=== PATIENT | female | born 1960 | race Caucasian/White ===

== ENCOUNTER 2016-10-08 12:17 | Emergency (ER) | payer OTHER ==
[2016-10-08 12:34] VITALS: PULSE 105; RESP 18
[2016-10-08] MEDS ORDERED: IBUPROFEN 600 MG TAB PO ONE (13:48)
--- NOTE | 2016-10-08 13:56 | UCPHY ---
H & P Time Seen by Provider: 10/08/16 13:37 Patient Type: Established HPI/ROS: CHIEF COMPLAINT: Cough HISTORY OF PRESENT ILLNESS: 56-year-old female presents reporting 5 days of worsening cough, headache, and ear pain. Low-grade fever. No chest pain. No shortness of breath. Occasional sputum production. No fever, chills, chest pain, shortness of breath, palpitations, vomiting, diarrhea, urinary complaints, headache, lightheadedness. REVIEW OF SYSTEMS: Aside from elements discussed in the HPI, a comprehensive 10-point review of systems was reviewed and is negative. PAST MEDICAL HISTORY: Patient denies. SOCIAL HISTORY: Nonsmoker. VITAL SIGNS: see nurse's notes. GENERAL: Well-developed, well-nourished,frequent coughing. HEENT: Atraumatic Eyes: PERRL, EOMI, no conjunctival injection. Ears: Slight erythema bilaterally, normal landmarks. Nose: No discharge. Mouth: moist mucous membranes. Pharynx: Moderate erythema, no exudates, no swelling, no abscess. Uvula is midline. NECK: Supple, no adenopathy, no meningismus, no tenderness. Negative Kernig's and Brudzinski's. LUNGS: Faint bibasilar crackles, left greater than right, no wheezes, rhonchi or rales. CARDIAC: Regular rate and rhythm, no rubs, murmurs or gallops. ABDOMEN: Soft, nontender, bowel sounds normal. BACK: No CVA tenderness. EXTREMITIES: Normal, no edema, FROM. NEURO: Alert and oriented, grossly nonfocal. SKIN: Warm and dry, no rash. PSYCHIATRIC: Normal mentation, no agitation. Smoking Status: Never smoked Constitutional: Initial Vital Signs Temperature (C) 37.8 C 10/08/16 12:32 Heart Rate 105 H 10/08/16 12:32 Respiratory Rate 18 10/08/16 12:32 Blood Pressure 163/95 H 10/08/16 12:32 O2 Sat (%) 90 L 10/08/16 12:32 O2 Delivery Mode Room Air Allergies/Adverse Reactions: codeine [Codeine] Allergy (Verified 09/22/14 08:25) Penicillins Allergy (Verified 09/22/14 08:25) Sulfa (Sulfonamide Antibiotics) Allergy (Verified 09/22/14 08:25) Home Medications: Medication Instructions Recorded Albuterol Hfa Anes Only [Proair 2 puffs IH Q4-6PRN PRN #1 mdi 09/22/14 Hfa Icu (*)] Azithromycin [Zithromax tab 250 mg] 250 mg PO DAILY #6 tab 09/22/14 AZITHROMYCIN [Z-PACK] 250 - 500 mg PO DAILY #6 tab 10/08/16 Albuterol [Proventil Inhaler HFA 1 - 2 puffs IH Q4H #1 mdi 10/08/16 (*)] Benzonatate [Tessalon Pearles (RX)] 100 mg PO TID PRN #20 cap 10/08/16 Medical Decision Making - Diagnostics Imaging Results: Xray: Chest x-ray was obtained. I viewed the images myself on the PACS system. My interpretation of the images is: Consistent with bronchitis. The radiology interpretation is: Agrees. I discussed the results with the patient. ED Course/Re-evaluation: 56-year-old female with cough for several days which has developed after an upper respiratory infection. Examination demonstrates faint rales worse on left. O2 sat is 90%. Patient has been unable to sleep secondary to cough. Chest x-ray demonstrates peribronchial cuffing. Patient was placed on azithromycin, Tessalon Perles, and albuterol meter dose inhaler. Differential Diagnosis: Differential diagnosis for the patient's cough was considered including but not limited to viral versus bacterial bronchitis, asthma, COPD, pulmonary emboli, upper respiratory infection, lower respiratory infection, and bronchospasm. - Data Points Medications Given: Discontinued Medications Ibuprofen (Motrin) 600 mg PO EDNOW ONE Stop: 10/08/16 13:49 Last Admin: 10/08/16 13:58 Dose: 600 mg Departure - Departure Disposition: Home, Routine, Self-Care Clinical Impression: Bronchitis, Bronchospasm with bronchitis, acute Fever Qualifiers: Fever type: unspecified Qualified Code(s): R50.9 - Fever, unspecified Upper respiratory infection Qualifiers: URI type: unspecified URI Qualified Code(s): J06.9 - Acute upper respiratory infection, unspecified Condition: Good Instructions: Acute Bronchitis (ED), Bronchospasm (ED) Additional Instructions: Please use the metered dose inhaler to help control your coughing and wheezing and shortness of breath. You been given a prescription of azithromycin. Please begin taking this as directed. Over the counter cold medications often contain both antihistamines and decongestants. If you have a runny nose, take an antihistamine. If you are congested, take a decongestant. Your sinus congestion headache will not improve without using a decongestant. Flonase nasal spray is available over the counter and is often very helpful at treating nasal congestion. If you have fever, please treat with Tylenol or ibuprofen. If you have a sore throat, use Tylenol, or ibuprofen. Throat lozenges, throat sprays, or salt water gargles may also be helpful. Drink plenty of fluids and get plenty of rest. You been given a prescription for Tessalon Perles. You may use these as directed to help with coughing at night. Seek care urgently or follow up at the emergency department if he develop a fever, worsening symptoms despite the above treatment, shortness of breath, chest pain, vomiting, or other concerns. Referrals: [facility] [Other] - As per Instructions Prescriptions: Albuterol [Proventil Inhaler HFA (*)] 1 - 2 puffs IH Q4H #1 mdi AZITHROMYCIN [Z-PACK] 250 - 500 mg PO DAILY #6 tab Benzonatate [Tessalon Pearles (RX)] 100 mg PO TID PRN #20 cap PRN Reason: Cough - PQRS PQRS Measurement: Not applicable
[2016-10-08 14:08] VITALS: BP 176/95; TEMP 98.8; O2SAT 92
== END 2016-10-08 14:07 | disposition home or self-care (01) ==
LOC: CED 12:17
DX: J20.9 Acute bronchitis, unspecified (principal); Z88.0 Allergy status to penicillin; Z88.2 Allergy status to sulfonamides
CPT/HCPCS: 71020-PO; G0463-PO